=== PATIENT | female | born 1950 | race African-American/Black ===

== ENCOUNTER → 2016-11-10 | Outpatient (CLI) | payer MEDICARE ==
[2015-03-12 11:00] VITALS: BP 136/77
[~2016-11-10] MED LIST: ASPI-482 PO; CRESTOR20 MG PO; CYCL10TA2 PO; HYDR-2758 PO; HYDR25TA9 PO; LEVO175T5 PO; LOSA100T6 PO; OMEP20CA9 PO
--- NOTE | 2016-11-10 16:51 | KCIC ---
Bilateral digital screening mammograms: Reason for examination: Routine screening. Comparison is made to previous studies dated 11/01/2015 and 11/01/2014. The skin and nipples show no abnormalities. No abnormal axillary lymph nodes are seen. The breast parenchyma shows scattered fibroglandular density. (Breast density: Category B.) There are no dominant masses, suspicious calcifications or architectural distortions. Some calcifications are present and appear to be stable. Impression: No evidence of malignancy. Recommend routine screening. BI-RADS category 2: Benign "Our facility is accredited by the [employer] Mammography [employer]." This patient's information has been entered into a reminder system for the patient to be notified with the results of her examination and a target date for the next mammogram. Electronically signed by: Sophia Gaines MD (11/10/2016 4:48 PM) [email or web address]
== END | disposition home or self-care (01) ==
LOC: KCIC MAMMO 12:28
PROVIDERS: ATTEND Internal Medicine
DX: Z12.31 Encounter for screening mammogram for malignant neoplasm of breast (principal)
CPT/HCPCS: G0202; 77067

== ENCOUNTER → 2017-11-11 | Outpatient (CLI) | payer MEDICARE | END | disposition home or self-care (01) | LOC: KCIC MAMMO 12:21 | DX: Z12.31 Encounter for screening mammogram for malignant neoplasm of breast (principal) | CPT/HCPCS: 77063; 77067 ==

== ENCOUNTER → 2018-03-03 | Outpatient (CLI) | payer MEDICARE ==
[2015-03-12 11:00] VITALS: BP 136/77
[~2018-03-03] MED LIST changes: +IOHEXOL 240 MG/ML 50ML VIAL. IV ONE; +IOHEXOL 240 MG/ML 50ML VIAL. PO ONE; +IOHEXOL 300 MG/ML 100ML VIAL. IV ONE; +LEVO137T2 PO; -LOSA100T6 PO; +LOSA100T7 PO
--- NOTE | 2018-03-03 15:13 | KCIC ---
CT ABD PELV W/ORAL IV CONTRAST dated 03/03/2018 2:00 PM Indication: Right lower quadrant pain hip pain., History of prior hysterectomy. Comparison: No comparison is available. Technique: Contiguous axial imaging of the abdomen and pelvis performed after the administration of 100 cc Omnipaque 300. One or more of the following individualized dose reduction techniques were utilized for this examination: 1. Automated exposure control 2. Adjustment of the mA and/or kV according to patient size 3. Use of iterative reconstruction technique Findings: Limited images of lung bases are clear. Heart size within normal limits. No pleural or pericardial effusion. Minimal linear scar or atelectasis at the right base. Liver is of diffuse low density, compatible with fatty infiltration. No apparent mass. Biliary tree normal in caliber. Gallbladder unremarkable. Spleen, pancreas, adrenal glands unremarkable. There is a well-defined low-density focus at the upper pole right kidney, likely cyst. No hydronephrosis. Partially opacified GI tract is normal in caliber and contour. No focal bowel wall thickening. No inflammatory stranding in the mesentery. There are a few scattered diverticula within the colon. No paracolonic inflammatory changes. The appendix is normal in caliber. Abdominal aorta normal in caliber. Images of pelvis show nondistended urinary bladder. Uterus is surgically absent. No free fluid or lymphadenopathy. Bone windows show no acute findings. Multilevel spondylosis. IMPRESSION: 1. No acute abnormality of abdomen or pelvis. Normal appendix. 2. Diverticulosis. 3. Mild fatty infiltration of the liver. 4. Status post hysterectomy. Electronically signed by: Reji Gonzáles MD (03/03/2018 3:09 PM) [email or web address]
== END | disposition home or self-care (01) ==
LOC: KCIC CT 12:45
PROVIDERS: ATTEND Internal Medicine Gastroenterology
DX: K57.30 Diverticulosis of large intestine without perforation or abscess without bleeding (principal); M47.896 Other spondylosis, lumbar region; I10 Essential (primary) hypertension; M25.551 Pain in right hip; Z90.710 Acquired absence of both cervix and uterus
CPT/HCPCS: 74177; Q9966; Q9967

== ENCOUNTER → 2018-11-17 | Outpatient (CLI) | payer MEDICARE ==
[2015-03-12 11:00] VITALS: BP 136/77
[~2018-11-17] MED LIST changes: +HYDR-2145 PO; -HYDR-2758 PO; +HYDR-2761 PO; -HYDR25TA9 PO; -IOHEXOL 240 MG/ML 50ML VIAL. IV ONE; -IOHEXOL 240 MG/ML 50ML VIAL. PO ONE; -IOHEXOL 300 MG/ML 100ML VIAL. IV ONE; +LOSA100T14 PO; -LOSA100T7 PO; +OMEP20CA10 PO; -OMEP20CA9 PO
--- NOTE | 2018-11-17 16:55 | KCIC ---
Bilateral digital screening mammograms: Reason for examination: Routine screening. Comparison is made to previous studies dated 11/11/2017 and 11/10/2016. Interpretation was made with the benefit of CAD. The skin and nipples show no abnormalities. No abnormal axillary lymph nodes are seen. The breast parenchyma shows scattered fibroglandular density. (Breast density: Category B.) There continues to be small nodular parenchymal densities in the left breast which are stable. There are no new dominant masses, suspicious calcifications or architectural distortions. Scattered and clustered benign calcifications are present. Impression: No evidence of malignancy. Recommend routine screening. BI-RADS category 2: Benign "Our facility is accredited by the [employer]ammography [employer]." This patient's information has been entered into a reminder system for the patient to be notified with the results of her examination and a target date for the next mammogram. Electronically signed by: Sophia Gaines MD (11/17/2018 4:52 PM) [id number]
--- NOTE | 2018-11-17 17:34 | KCIC ---
INDICATION: Osteoporosis screening. Estrogen deficiency COMPARISON: None. TECHNIQUE: Bone densitometry was performed through the lumbar spine and left proximal femurs. FINDINGS: Lumbar Spine: L1-4 BMD: 1.77 T-Score: 6.6 Femoral Neck: BMD: 1.1 T-Score: 1.6 IMPRESSION: 1. Lumbar spine falls within the normal range. 2. Bilateral femoral neck falls within the normal range. Electronically signed by: Jona Castellanos MD (11/17/2018 5:31 PM) [facility]
== END | disposition home or self-care (01) ==
LOC: KCIC DEXA 14:20
PROVIDERS: ATTEND Internal Medicine
DX: Z12.31 Encounter for screening mammogram for malignant neoplasm of breast (principal); Z13.820 Encounter for screening for osteoporosis; N64.89 Other specified disorders of breast; E28.39 Other primary ovarian failure
CPT/HCPCS: 77067; 77080

== ENCOUNTER → 2019-11-21 | Outpatient (CLI) | payer MEDICARE ==
[2015-03-12 11:00] VITALS: BP 136/77
[~2019-11-21] MED LIST changes: -LEVO137T2 PO; +LEVO137T44 PO; -OMEP20CA10 PO; +OMEP20CA16 PO
--- NOTE | 2019-11-21 13:15 | KCIC ---
EXAM: Bilateral digital screening mammogram with tomosynthesis. HISTORY: 69-year-old female presents for screening mammography. TECHNIQUE: Full-field digital craniocaudal and mediolateral oblique 2D and 3D tomosynthesis images of both breasts are obtained for evaluation. Computer aided detection with [employer]D software version 9.3 was applied. COMPARISON: 11/17/2018 and 11/11/2017 BREAST PARENCHYMAL DENSITY: Level B - Scattered fibroglandular densities. FINDINGS: There is no new suspicious mass, microcalcification or region of architectural distortion. There is stable areas of nodularity within both breasts. There are multiple benign calcifications within both breasts. IMPRESSION: BI-RADS Category 2: Benign finding(s). RECOMMENDATION: Annual mammography is recommended. If your mammogram demonstrates that you have dense breast tissue, which could hide abnormalities, and if you have other risk factors for breast cancer that have been identified, you might benefit from supplemental screening tests that may be suggested by your ordering physician. Dense breast tissue, in and of itself, is a relatively common condition. This information is not provided to cause undue concern, but rather to raise your awareness and to promote discussion with your physician regarding the presence of other risk factors, in addition to dense breast tissue. A report of your mammography results will be sent to you and your physician. You should contact your physician if you have any questions or concerns regarding this report. Mammography is a sensitive method for finding small breast cancers, but it does not detect them all and is not a substitute for careful clinical examination. A negative mammogram does not negate a clinically suspicious finding and should not result in delay in biopsying a clinically suspicious abnormality. PQRS compliance statement - Patient information was entered into a reminder system with a target due date for the next mammogram. "Our facility is accredited by the [employer] Mammography [employer]." Electronically signed by: Munira Blackwell MD (11/21/2019 1:12 PM) [id number]
== END | disposition home or self-care (01) ==
LOC: KCIC MAMMO 12:29
PROVIDERS: ATTEND Internal Medicine
DX: Z12.31 Encounter for screening mammogram for malignant neoplasm of breast (principal); N64.89 Other specified disorders of breast
CPT/HCPCS: 77063; 77067

== ENCOUNTER → 2020-11-21 | Outpatient (CLI) | payer MEDICARE ==
[2015-03-12 11:00] VITALS: BP 136/77
--- NOTE | 2020-11-21 14:32 | KCIC ---
EXAM: Bilateral digital screening mammogram with tomosynthesis. HISTORY: 70-year-old female presents for screening mammography. TECHNIQUE: Full-field digital craniocaudal and mediolateral oblique 2D and 3D tomosynthesis images of both breasts are obtained for evaluation. Computer aided detection was applied. COMPARISON: 11/21/2019, 11/11/2017, 11/10/2016 BREAST PARENCHYMAL DENSITY: Level B - Scattered fibroglandular densities. FINDINGS: There is no new suspicious mass, microcalcification or region of architectural distortion. There are stable areas of nodularity and asymmetry within both breasts, most conspicuous of which is seen within the 3:00 position of the right breast at mid depth. There are multiple benign clustered a nd scattered calcifications within both breasts. IMPRESSION: BI-RADS Category 2: Benign finding(s). RECOMMENDATION: Annual mammography is recommended. If your mammogram demonstrates that you have dense breast tissue, which could hide abnormalities, and if you have other risk factors for breast cancer that have been identified, you might benefit from s upplemental screening tests that may be suggested by your ordering physician. Dense breast tissue, i n and of itself, is a relatively common condition. This information is not provided to cause undue c oncern, but rather to raise your awareness and to promote discussion with your physician regarding th e presence of other risk factors, in addition to dense breast tissue. A report of your mammography re sults will be sent to you and your physician. You should contact your physician if you have any ques tions or concerns regarding this report. Mammography is a sensitive method for finding small breast cancers, but it does not detect them all a nd is not a substitute for careful clinical examination. A negative mammogram does not negate a clin ically suspicious finding and should not result in delay in biopsying a clinically suspicious abnorma lity. PQRS compliance statement - Patient information was entered into a reminder system with a target due date for the next mammogram. "Our facility is accredited by the [employer]ammography [employer]." Electronically signed by: Munira Blackwell MD (11/21/2020 2:30 PM) [email or web address]
== END ==
LOC: KCIC MAMMO 13:01
PROVIDERS: ATTEND Internal Medicine
DX: Z12.31 Encounter for screening mammogram for malignant neoplasm of breast (principal)
CPT/HCPCS: 77063; 77067

== ENCOUNTER → 2021-06-27 | Outpatient (CLI) | payer MEDICARE ==
[2015-03-12 11:00] VITALS: BP 136/77
[~2021-06-27] MED LIST changes: +CYCL10TA19 PO; -CYCL10TA2 PO
--- NOTE | 2021-06-28 08:35 | KCIC ---
Exam: XR KNEE_RT 1-2 VIEWS History: Injury. Osteoarthritis. Comparison: None. Findings: Osseous mineralization is normal. No acute fracture or dislocaton. There is high-grade narrowing of t he medial tibiofemoral compartment. Tricompartmental osteophyte formation. Lateral meniscal chondroca lcinosis. No significant effusion. Impression: 1. Degenerative changes of the right knee without acute osseous abnormality. Electronically signed by: Minesh Calix MD (06/28/2021 8:33 AM) [id number]
== END ==
LOC: KCIC 14:59
PROVIDERS: ATTEND Internal Medicine
DX: M17.11 Unilateral primary osteoarthritis, right knee (principal); M25.461 Effusion, right knee
CPT/HCPCS: 73560